=== PATIENT | female | born 1960 | race Caucasian/White ===

== ENCOUNTER 2017-05-27 16:17 | Inpatient (IN) | payer BC ==
[~2017-05-27] VITALS: Ht 152.4 cm; Wt 81.6 kg
[~2017-05-27 16:17] MED LIST: CYCLOBENZAPRINE5 MG PO; KEFLEX500 MG PO; MOBIC15 MG PO; NORCO 5-325 TA1 EACH PO; TRAMADOL 50 MG50 MG PO; VALIUM5 MG PO; ZANAFLEX4 M1 PO
[2017-05-27] MEDS ORDERED: ENOXAPARIN30 MG/0.1 SUBQ (16:31)
[2017-05-27] MEDS ORDERED: LASIX 20 MG TAB20 MG PO (16:35)
[2017-05-27] MEDS ORDERED: NAPROSYN500 MG PO (16:38)
[2017-05-27] MEDS ORDERED: OXYCODONE HCL 55 MG PO (16:40)
[2017-05-27] MEDS ORDERED: PREDNISONE 20 M20 MG PO (16:42)
[2017-05-27] MEDS ORDERED: PROAIR RESPICL90 MCG IH (16:43)
[2017-05-27] MEDS ORDERED: TRIAMCINOLONE A80 G2 TOP (16:51)
[2017-05-27 19:27] VITALS: BP 124/64
--- NOTE | 2017-05-27 19:29 | NUR ---
ASSUMMED CARE OF PT AT 0615 UPON ARRIVAL ON UNIT ADMISSION. PT ORIENTED TO UNIT, DINNER ORDERED FOR PT, QUESTIONS ANSWERED, TRANSFERS WITH ASSIST OF 1, GB, WILL CONTINUE TO MONITER.
[2017-05-27 20:06] VITALS: BP 147/73
--- NOTE | 2017-05-27 22:17 | NUR ---
ASSUMED CARE OF PT AT 1930. REHAB TOOL ADMISSION COMPLETED. PT A/O X 4 AND VERY PLEASANT. , A DAUGHTER AND 3 YOUNG CHILDREN VISITED. HAS RED AREA IN LLQ AREA THAT PT THINKS WAS CAUSED BY LOVENOX INJECTIONS. C/O PAIN IN THIS AREA. RATES PAIN FROM LEFT KNEE TO LEFT ANKLE A "4". HAS SPLINT TO RIGHT 4TH FINGER. NWB TO RIGHT 4TH FINGER AND LLE. PT IS RIGHT HANDED SO REQUIRES ASSIST WITH ALLI CARE AND CLOTHING ADJUSTMENTS. STANDS ON RIGHT LEG AND PIVOTS TO TRANSFER FROM CHAIR TO BSC. NEEDED ASSIST WITH LIFTING LEFT LEG INTO BED. TOOK MEDS WHOLE WITH WATER WITHOUT DIFFICULTY.
[2017-05-28 04:44] LABS: HEMATOCRIT 32.2 % (37.0-47.0); HEMOGLOBIN 11.2 gm/dL (12.0-15.0); MCH 32.9 pg (26.0-34.0); MCHC 34.9 g/dL (28.0-37.0); MCV 94.2 fL (80.0-100.0); MPV 8.2 fl. (7.2-11.1); RBC 3.41 mil/uL (4.20-5.00); RDW-CV 15.1 % (10.5-14.5); WBC 6.5 thou/uL (4.0-11.0)
[2017-05-28 05:00] LABS: CALCIUM 8.7 mg/dL (8.5-10.1); CREATININE 0.4 mg/dL (0.6-1.3); POTASSIUM 3.7 mmol/L (3.5-5.1)
--- NOTE | 2017-05-28 05:00 | NUR ---
PT HAD A RESTLESS NIGHT. FAIR RELIEF WITH PAIN MEDS. AMBIEN DIDN'T HELP WITH SLEEPLESSNESS. PT WANTS TO TRY MELATONIN TONIGHT. UP X ONE TO BS THIS AM AND THEN WANTED TO SIT IN THE CHAIR. LEGS ELEVATED ON A PILLOW. EXPERIENCED SOME SOB AROUND 0430. 02 SAT 94% AT THAT TIME. NOTIFIED RESPIRATORY AND PT RECEIVED AN ALBUTEROL AEROSOL TREATMENT.
[2017-05-28 07:38] VITALS: BP 119/53
--- NOTE | 2017-05-28 10:05 | NUR ---
SW met with pt to complete initial assessment, introduce self, and SW role. Pt alert and oriented, pleasant and talkative. Pt expressed that she was tired and did not sleep well last night. Pt plans to dc home to her dtr's home due to her home having 4 levels with multiple stairs to entry and from main level to bathroom and bedrooms and pt can be on one level in her dtr's home. Pt anticipates needing a hospital bed and trapeze bar, wc with elevating leg rest. Pt has BSC, shower chair, and RW. Pt signed consent/pt right's form. SW to continue to follow to review team conference summary and to assist with safe dc planning.
--- NOTE | 2017-05-28 10:46 | NUR ---
Nutrition: Pt admitted with TBI, multiple FXs. Wt: 185#. No albumin recorded. Eating 100% of Heart Healthy diet. Appears at low risk at this time. Will follow weekly.
--- NOTE | 2017-05-28 18:59 | NUR ---
ASSUMED CARE AT 0730 PATIENT ALERT/ORIENTED, PAIN MEDS GIVEN REQUESTED, HOURLY ROUNDING COMPLETED, UP WITH ASSIST OF ONE/WALKER/STAND PIVOT TO COMMODE. BED/CHAIR ALARMS IN PLACE, CALL LIGHT IN REACH, PARTICIPATED IN ALL THERAPIES, TO DINING ROOM FOR MEALS. CONTINUE WITH CURRENT PLAN OF CARE
[2017-05-28 20:00] VITALS: BP 113/59
--- NOTE | 2017-05-29 01:49 | NUR ---
ASSUMED CARE @ 1950-05/28-FRI.SITS IN RECLINER W/ LE'S UP READING BIBLE.SPLINT OFF FROM RIGHT RING FINGER @ THIS TIME.CAST IN PLACE FROM LEFT KNEE TO LEFT TOES-W/ ELASTIC BANDAGE.PATIENT PUT BACK SPLINT RIGHT RING FINGER W/ JULIEN BANDAGE @ 2109.NWB LEFT LE OBSERVED DURING TRANSFERS.WANTS ONLY SIDERAILS X 3 UP.HOB UP.WANTS ONLY LEFT LE UP ON A PILLOW.BED ALARM PUT ON @ 230.PRN MELATONIN 3 MG ORAL GIVEN @ 231.ORDER WAS FAXED @ 1500 BUT NOT FOUND IN [place].CALLED TO ASSIST TO TURN @ 2343.ASSISTED BY CELERY TIER.ON HOURLY ROUNDS.CELERY TIER DOING ODD HOUR ROUNDS.
--- NOTE | 2017-05-29 05:51 | NUR ---
SLEEPING SINCE 0200.SLEPT LATE.EDEMA-+1 PITTING RIGHT FOOT/RIGHT ANKLE & RIGHT LEG.TOOK ALL NEGRO.ICE CREAM W/ ONE PACKAGE MATTHIAS CRACKERS HS SNACKS.
[2017-05-29 09:19] VITALS: BP 113/53
--- NOTE | 2017-05-29 15:53 | NUR ---
ASSUMED CARE AT 0730 PATIENT ALERT/ORIENTED, UP WITH ASSIST OF ONE WALKER/GAIT BELT/STAND PIVOT, PAIN MEDS GIVEN REQUESTED FOR LEFT LEG PAIN. PARTICPATED IN ALL THERAPIES TODAY, TO DINING ROOM FOR MEALS. BED/CHAIR ALARMS IN PLACE, CALL LIGHT IN REACH. HOURLY ROUNDING COMPLETED. CONTINUE WITH CURRENT PLAN OF CARE
[2017-05-29 20:30] VITALS: BP 120/61
--- NOTE | 2017-05-30 01:32 | NUR ---
ASSUMED CARE @ 1919-05/29-.SITS IN RECLINER W/ LOTS OF FAMILY VISITING @ 1919.SEVEN OUT OF 11 CHILDREN VISITING THIS TIME.CAST LEFT LEG IN PLACE. NOT WEARING SPLINT RIGHT RING FINGER @ 1919.SEE PAIN MANAGEMENT @ 1934. 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
--- NOTE | 2017-05-30 05:43 | NUR ---
SLEPT LATE.TO BED @ 2340.SLEEPING SINCE 0000-05/30-FRIDAY.USED BSC X1 ONLY.WEARS ALLI PAD.REMAINED ON HER RIGHT SIDE SINCE 2340.TOOK ALL ORANGE SHERBET & 2 PACKAGES MATTHIAS CRACKERS HS SNACKS.
[2017-05-30 07:30] VITALS: BP 111/48
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
[2017-05-30 20:18] VITALS: BP 117/69
--- NOTE | 2017-05-30 20:45 | NUR ---
SITING UP IN RECLINER VISITING WITH MULTIPLE FAMILY MEMBERS. DENIES DISCOMFORT. TOOK MEDS WHOLE WITH WATER.
--- NOTE | 2017-05-31 05:53 | NUR ---
SLEPT IN RECLINER WITH LEGS ELEVATED ALL NIGHT PER CHOICE. STATES GETS TOO HOT AND UNCOMFORTABLE IN THE BED. TOOK ONE OXY IR AT ABOUT 2300 FOR C/O LEFT LEG PAIN. NO FURTHER C/O PAIN. HOURLY ROUNDING IN PROGRESS.
[2017-05-31 08:06] VITALS: BP 90/43
--- NOTE | 2017-05-31 15:37 | NUR ---
ASSUMED CARE AT 0730, PATIENT ALERT/ORIENTED, PAIN MEDS GIVEN THIS SHIFT WITH GOOD RELIEF, UP WITH STANDBY ASSIST NWB TO LLE, STAND PIVOT TO BEDSIDE COMMODE, PARTICIPATED IN ALL THERAPIES, HOURLY ROUNDING COMPLETED. BED/CHAIR ALARMS IN PLACE, CALL LIGHT IN REACH. CONTINUE WITH CURRENT PLAN OF CARE
[2017-05-31 20:18] VITALS: BP 120/57
--- NOTE | 2017-05-31 20:25 | NUR ---
SITTING UP IN RECLINER. JUST FINISHED EATING PASHTO FOOD BROUGHT IN BY HER . TWO KIDS AND IN ROOM VISITING. HAS LLE ELEVATED. DID AGREE TO TAKE MOM TONIGHT. HASN'T HAD A BM SINCE 05/27/17. TOOK MEDS WHOLE WITH WATER.
--- NOTE | 2017-06-01 05:29 | NUR ---
RESTED QUIETLY SINCE ABOUT MIDNIGHT AFTER TAKING MELATONIN AND ONE OXY IR. NO FURTHER C/O LEFT LEG PAIN. TURNS SELF IN BED. HOURLY ROUNDING IN PROGRESS.
[2017-06-01 08:05] VITALS: BP 114/62
--- NOTE | 2017-06-01 15:47 | NUR ---
ASSUMED CARE AT 0730 PATIENT ALERT/ORIENTED, PAIN MEDS GIVEN X1 FOR LEFT LEG PAIN, UP WITH STANDBY ASSIST, STAND PIVOT TO W/C, COMMODE. TO DINING ROOM FOR MEALS, BED/CHAIR ALARMS IN PLACE, CALL LIGHT IN REACH, HOURLY ROUNDING COMPLETED. CONTINUE WITH CURRENT PLAN OF CARE
[2017-06-01 20:18] VITALS: BP 111/55
--- NOTE | 2017-06-01 20:40 | NUR ---
SITTING UP IN RECLINER VISITING WITH MULTIPLE FAMILY MEMBERS. RIGHT 4TH FINGER SPLINT INTACT. 3-4+ PEDAL EDEMA NOTED. LLE CAST INTACT. TOOK MEDS WHOLE WITH WATER.
--- NOTE | 2017-06-02 04:48 | NUR ---
RESTED QUIETLY IN BED SINCE ABOUT 0030. HAS BELONGINGS PACKED. PT STATES IS LEAVING TODAY. NO C/O DISCOMFORT. HOURLY ROUNDING IN PROGRESS.
[2017-06-02 09:04] VITALS: BP 128/74
--- NOTE | 2017-06-02 15:11 | NUR ---
SW followed up with pt as pt had discussed with various team members that she thought she was going home today. SW explained that the team had discussed pt to remain on rehab and for team to reassess pt length of stay during team conference on Friday. Pt also wanted to make sure that she would be able to receive hospital bed, wc with elevating leg rest and trapeze. CLARENCE explained that once SW has needed orders and info to send to company, that SW would plan to order prior to pt dc; SW discussed pt may not qualify for this DME through insurance and pt is aware that she may need to rent the equipment. SW to continue to follow to assist with safe dc planning.
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
[2017-06-02 20:00] VITALS: BP 117/77
--- NOTE | 2017-06-03 05:11 | NUR ---
ASSUMED CARES AT 1920. ALERT AND ORIENTED. PLEASANT. MANY FAMILY VISITORS. MELATONIN GIVEN FOR SLEEP. PAIN MEDS GIVEN FOR LET LEG PAIN. NWB LLE. RLE EDEMA 3+. LEGS ELEVATED UP ONTO PILLOWS. SHE IS A MOD ASSIST WITH GAIT BELT AND WALKER. STAND AND PIVOT. REMINDED PT THAT FAMILY CANNOT ASSIST WITH TRANSFERS. SLEPT WELL. CALL LIGHT IN REACH. BED ALARM ON.
[2017-06-03 07:30] VITALS: BP 138/86
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
[2017-06-03 20:05] VITALS: BP 130/70
--- NOTE | 2017-06-04 00:44 | NUR ---
ASSUMED CARE @ 1909-06/03-.SITS IN W/C DOING BILLS.SHORT LEG CAST INTACT LEFT LE.EDEMA-LEFT TOES/+1 PITTING RIGHT LEG/+2 PITTING RIGHT FOOT & RIGHT ANKLE.SBA FOR ALL TRANSFERS & TOILETING.NWB LEFT LE OBSERVED DURING TRANSFERS. SAT IN RECLINER @ 2024 AFTER BRP PER W/C.APPLIED SPLINT RIGHT RING FINGER @ 2024.FEET ELLEVATED ON FOOT STOOL @ 2029. CAME @ 2044 & BROUGHT LATE DINNER FOR PATIENT.SBA TO BED @ 2324.ASSIST TO LIFT LEFT LE INTO BED.WANTS LEFT LE UP ON A PILLOW @ 2324.ON HOURLY ROUNDS.SLEEPING @ 0000-06/04-FRI. ALREADY GONE @ 0000.
--- NOTE | 2017-06-04 05:31 | NUR ---
SLEEPING SINCE OOOO.TURNS SELF @ NIGHT.WEARS ALLI PAD.SEE PAIN MANAGEMENT @ 0403.REFUSED HS SNACK. BROUGHT LATE DINNER @ 2044.BRP PER W/C X1.MOD IND IN ROOM -ORDERED 06/03 BUT ORDER ONLY SEEN @ 0228 AM 06/04-FRI.FOR DISCHARGE TODAY-.
[2017-06-04 08:00] VITALS: BP 145/56
[2017-06-04 15:56] VITALS: BP 145/56
--- NOTE | 2017-06-04 16:13 | NUR ---
CLARENCE met with pt and reviewed team conference summary and discussed plan for pt to dc home today with HH services. Pt to receive wc elevating leg rests and hospital bed through [employer]; CLARENCE faxed referral and orders and spoke with Syeda who accepted referral and confirmed pt DME to be delivered to pt dtr's home. Pt preference for [facility]; CLARENCE discussed with [facility] intake and provided referral and orders by fax. Pt son in law in pt room and confirmed that they will be able to use old wc to safely transport pt inside. No other questions or concerns expressed.
[2017-06-04 16:18] VITALS: BP 145/56
--- NOTE | 2017-06-04 17:37 | NUR ---
PT CARE ASSUMED THIS AM, ASSESSMENT AND VITAL SIGNS COMPLETED DOCUMENTED. PT COMPLETED THERAPY AND HAS MET HER DISCHARGE GOALS. HOME HEALTH SERVICES AND MEDICAL EQUIPMENT HAVE BEEN SET UP FOR HOME. PT PROVIDED WITH PRINTED AND VERBAL INSTRUCTIONS. FOLLOW UP WITH [facility]TH[facility] HAS BEEN SCHEDULED. PT AND BELONGINGS TRANSPORTED TO EXIT, DISCHARGED HOME IN STABLE CONDITION.
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
--- NOTE | 2017-06-11 14:12 | PLAN ---
[address] [address] REHAB UNIT PLAN OF CARE Name: TATIANA OWENS Room: [address] IN [facility]#: [id number] Admission: 05/27/17 Attend Phys: Caroline Cho DO Discharge: 06/04/17 Date of : 62 Report #: [id number] THIS REPORT FOR: //name// CC: Caroline Manzano This is a 56-year-old female with cerebral palsy. She did have a mechanical fall. She did sustain multiple fractures. She also has loss of consciousness with a concussion. She was diagnosed with multiple fractures including right hand phalanx fracture, left oblique fracture of the distal tibia with a 3 mm anterior displacement, left medial malleoli fracture with a 2 mm lateral displacement and a left displaced oblique fracture of the proximal fibular diaphysis. She also has mild impairment of comprehension, expression, interaction and problem solving. Previous level of function was modified independent with activities of daily living. Current level of function is minimum to maximum assistance of 1-2 depending on therapy, activity and time of day. Estimated length of stay is 12-14 days with discharge disposition to home. MEDICAL PROGNOSIS: Good. REHABILITATION PROGNOSIS: Good. Physical therapy will see the patient in 60-90 minutes per day, 5 days per week, working on upper and lower body strength, balance, coordination, navigation. Occupational therapy will work with the patient 60-90 minutes per day, 5 days per week, working on upper and lower body strength, balance, coordination and navigation. Speech language pathology will work with the patient 30-90 minutes per day, 5 days per week, working on cognitive impairment, comprehension, expression, social interaction and problem solving. This is an overall plan of care. It may change from time to time. We will team her weekly and make changes to the plan of care as needed. <ELECTRONICALLY SIGNED> By: Caroline Cho DO 06/11/17 1412 1503 2056Caroline Cho DO /nt
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
== END 2017-06-04 17:00 | disposition home health service (06) | DRG 563 ==
LOC: M.REH 16:17
PROVIDERS: ADMIT Physical Medicine & Rehabilitation
DX: S82.52XA Displaced fracture of medial malleolus of left tibia, initial encounter for closed fracture (principal); S06.0X9A Concussion with loss of consciousness of unspecified duration, initial encounter; G80.9 Cerebral palsy, unspecified; J45.909 Unspecified asthma, uncomplicated; S62.638A Displaced fracture of distal phalanx of other finger, initial encounter for closed fracture; S82.432A Displaced oblique fracture of shaft of left fibula, initial encounter for closed fracture; G47.00 Insomnia, unspecified; Z90.710 Acquired absence of both cervix and uterus; Z90.49 Acquired absence of other specified parts of digestive tract; Z87.442 Personal history of urinary calculi; V98.8XXA Other specified transport accidents, initial encounter; Y93.I9 Activity, other involving external motion; Y92.89 Other specified places as the place of occurrence of the external cause; Y99.8 Other external cause status; Z82.5 Family history of asthma and other chronic lower respiratory diseases; Z79.899 Other long term (current) drug therapy